=== PATIENT | female | born 1940 | race Caucasian/White ===

== ENCOUNTER 2016-05-11 08:40 | Day surgery (SDC) | payer MEDICARE, BC ==
[2016-05-10 12:55] VITALS: BMI 25.5
[~2016-05-11] VITALS: Ht 162.6 cm; Wt 68.8 kg
[2016-05-11] VITALS (18 sets, daily range): BP systolic 110–125; BP diastolic 62–77; PULSE 77–91; RESP 10–24; Ht 162.6 cm; Wt 68.8 kg
[~2016-05-11 08:40] MED LIST: ADV25050 INHALATION; ASCO500S2 PO; CHOL400T10 PO; CITA-104 PO; COLC0.6T6 PO; CYAN500T46 PO; GUAI120011 PO; LEVO125T79 PO; TIOT18CA INHALATION
[2016-05-11] MEDS ORDERED: COLC0.6T6 PO (09:15)
[2016-05-11] MEDS ORDERED: CEFAZOLIN 2 GM/50 ML (PMX) 50 ML IVPB ONE (09:30)
[2016-05-11] MEDS ORDERED: LACTATED RINGER'S 1,000 ML IV ONE (10:00)
[2016-05-11] MEDS ORDERED: LIDOCAINE 1% (STERILE-PAK) 30 ML INJ ONE (10:12)
[2016-05-11] MEDS ORDERED: BUPIVACAINE 0.5% (SDV) 30 ML INJ ONE (10:12)
[2016-05-11] MEDS ORDERED: ROPIVACAINE 0.5 % 30 ML VIAL ONE (10:52)
--- NOTE | 2016-05-11 11:09 | HPN ---
Date/Time of Note Date/Time of Note DATE: 05/11/16 TIME: 11:07 Interval H&P Admission Note Pt. seen H&P reviewed: No system changes failure of volar plate and screws. Plan for dorsal plate and screw fixation, possible removal of hardware. Possible allograft. ANASTASIIA COBOS May 11, 2016 11:08
[2016-05-11] MEDS ORDERED: FENTAnyl 50 MCG/ML VIAL ONE (11:48)
[2016-05-11] MEDS ORDERED: MIDAZOLAM 1 MG/ML 2 ML INJ ONE (11:48)
[2016-05-11] MEDS ORDERED: CEFAZOLIN 1 GM INJ ONE ×2 (11:48→13:41)
[2016-05-11] MEDS ORDERED: LABETALOL HCL 20MG INJ ONE (12:23)
[2016-05-11] MEDS ORDERED: PROPOFOL 20 ML ONE (13:01)
[2016-05-11] MEDS ORDERED: ONDANSETRON 4 MG INJ ONE (13:43)
[2016-05-11] MEDS ORDERED: METOCLOPRAMIDE 10 MG INJ ONE (13:43)
[2016-05-11] MEDS ORDERED: FENTAnyl 50 MCG/ML VIAL IV PRN ×2 (14:30)
[2016-05-11] MEDS ORDERED: LABETALOL HCL 20MG INJ IV PRN (14:30)
[2016-05-11] MEDS ORDERED: METOCLOPRAMIDE 10 MG INJ IV PRN (14:30)
[2016-05-11] MEDS ORDERED: morphine (1 MG/ML) 10ML SYRINGE IV PRN ×2 (14:30)
[2016-05-11] MEDS ORDERED: DIPHENHYDRAMINE 50 MG INJ IV PRN (14:30)
[2016-05-11] MEDS ORDERED: hydrALAzine 20 MG INJ IV PRN (14:30)
[2016-05-11] MEDS ORDERED: HYDROmorphONE (0.2 MG/ML) 10ML SYG IV PRN ×2 (14:30)
[2016-05-11] MEDS ORDERED: ONDANSETRON 4 MG INJ IV PRN (14:30)
[2016-05-11] MEDS ORDERED: MIDAZOLAM 1 MG/ML 2 ML INJ IV PRN (14:30)
[2016-05-11] MEDS ORDERED: EPHEDrine SULFATE 50 MG/5 ML SYG IV PRN (14:30)
[2016-05-11] MEDS ORDERED: MEPERIDINE 25 MG INJ IV PRN (14:30)
[2016-05-11] MEDS ORDERED: HYDROCODONE/APAP (5/325) TAB PO PRN (15:00)
--- NOTE | 2016-05-11 15:09 | RADRPT ---
PROCEDURE: Intraoperative imaging of the left wrist with fluoroscopy. CLINICAL INDICATION: Left wrist pain. Intraoperative. TECHNIQUE: 17 images of the left wrist were obtained in the operating room with an image intensifi er. No radiologist was in attendance. 30 seconds of fluoroscopy time was used. COMPARISON: 04/14/2016. FINDINGS: Images demonstrate open reduction and internal fixation of the left distal radius with multiple plat es and multiple screws. IMPRESSION: 1. Intraoperative imaging of the left wrist. RPTAT: QQ .Clay Jalloh MD, MD Date Time Electronically viewed and signed by .Clay Jalloh MD, on 05/11/2016 15:09 .R/
--- NOTE | 2016-05-11 17:17 | OPR ---
DATE OF OPERATION: 05/11/2016 PREOPERATIVE DIAGNOSIS: Left distal radius fracture with failed fixation. POSTOPERATIVE DIAGNOSIS: Left distal radius fracture with failed fixation. OPERATION PERFORMED: 1. Revision open reduction internal fixation of left intra-articular distal radius fracture. 2. Application of bone allograft into fracture site. 3. Removal of deep hardware from left distal radius. SURGEON: Anastasiia Gillette MD ANESTHESIA: Peripheral nerve block plus general. OPERATIVE FINDINGS: Dorsal translation and dorsal tilt of distal radius fracture with the fracture site showing no callus formation and fibrous tissue within the fracture site as well as dorsally. A bsolutely no evidence of bony healing. Bone void within the metadiaphyseal junction INDICATIONS FOR PROCEDURE: This is a 75-year-old female who I saw in clinic 3 weeks after attempted conservative management of her left distal radius fracture. Her fracture had displaced despite jules ng in excellent position on the initial reduction of the 1 week followup. Due to her dorsal tilt an d translation and loss of reduction, we elected to proceed with operative intervention understanding the risks and benefits. On her initial procedure, a volar plate and screws were used to secure the fracture fragments. There was excellent fixation and the fracture was stable. However, on the 3 w robinson followup, the patient had loss reduction despite initial stable fixation. The distal fragment h ad tilted dorsally as well as translated dorsally. Options were discussed with the patient, and she elected to proceed with revision open reduction internal fixation understanding the risks and benef its. We discussed the possible necessity of bone allograft due to her bone quality and slow healing . DESCRIPTION OF PROCEDURE: The patient was seen in the preoperative area and all further questions w ere answered. Again, she gave informed consent, understanding the risks and benefits. She was take n to the operative suite and placed in the supine position. A peripheral nerve block was performed at my request for perioperative anesthesia as well as postoperative pain relief. A tourniquet was placed on the left upper extremity and left upper extremity was prepped and draped in the usual ster ile fashion using ChloraPrep stick. Ancef 2 grams was administered and an Esmarch bandage was used to exsanguinate the extremity and the tourniquet inflated to 250 mmHg. The previous volar incision was utilized and sharp dissection was carried down through skin and subc utaneous tissue. The FCR tendon was identified and this was incised along its radial border, altho ugh there was significant scar tissue and scissor dissection was used to carefully identify the FCR tendon. The tendon was retracted ulnarly and the FCR subsheath was identified and was incised along its midline. The FPL was retracted and pronator quadratus was identified and had partially regrown over the plate. Bovie electrocautery was used to elevate radially and distally in order to reveal the plate. The distal row screws were removed and the shaft screws were loosened slightly. Attention was then turned dorsally and a dorsal longitudinal incision was utilized. Sharp dissectio n was carried down through skin and subcutaneous tissue. The extensor retinaculum overlying the EPL tendon was identified. It was incised along the course of the EPL tendon. The EPL tendon was retr acted radially and the interval between the second and fourth compartments was identified, and the f ourth extensor compartment was elevated within its sheath off the distal radius. The second extenso r compartment was also elevated off the distal radius. I identified the fracture site, which had si gnificant fibrous tissue within it and absolutely no evidence of bony growth. The fragment was unst able and was translated dorsally. Knife and rongeur were used to clean out the fracture site from t he fibrous tissue and the fracture was reduced. A [employer] dorsal distal radius plate was utilized and cortical screws were placed in the shaft and locking screws placed distally. Attention was then turned back volarly and the volar distal radius plate was tightened down onto the volar distal radius in order to sandwich the fracture and provide extra stability. Two locking scr ews were placed into the distal aspect of the volar locking plate. X-ray imaging confirmed near yaya tomic alignment and interval fracture reduction and acceptable hardware positioning. As I was pleas ed with the fracture reduction and initial stability, I placed 4 distal row locking screws in the vo lar distal radius plate and tightened down the 3 more proximal shaft screws. I then turned my attention dorsally and placed an additional dorsal distal radius plate for addition al fixation. Despite the fracture reduction, there was bone loss which was quite evident and cancel lous autograft bone was used within the metadiaphyseal void. X-ray imaging confirmed acceptable bon y alignment and hardware placement, and I ranged the wrist, which was quite stable. The wound was copiously irrigated and extensor retinaculum closed with 3-0 Vicryl. Skin was closed with interrupted 4-0 nylon. Xeroform was placed followed by sterile gauze, Webril and a short arm s plint. Tourniquet was deflated after 2 hours and patient was awakened from anesthesia. She was laron en to the postoperative suite in stable condition and tolerated the procedure well without complicat ion. SPECIMENS: Screws from volar distal radius plate, [employer]. ESTIMATED BLOOD LOSS: 5 mL. COUNTS: Sponge, instrument, needle counts correct. TOURNIQUET TIME: 2 hours. FLUOROSCOPIC IMAGES: 18. CONDITION ON DISCHARGE: Stable. Dictated By: ANASTASIIA COLON/MICKY Conf#: [id number] DID#: [id number]
--- NOTE | 2016-05-12 22:54 | RADRPT ---
Vent Rate: 81 bpm RR Interval: 0 msec DE Interval: 174 msec QRS Duration: 72 msec QT Interval: 412 msec QTC Interval: 478 msec P-R-T [place]: 58 - 74 - 88 degrees Normal sinus rhythm with sinus arrhythmia Possible Left atrial enlargement Borderline ECG Electronically Signed By: Andi Stratton [id number]
== END 2016-05-11 17:19 | disposition home or self-care (01) ==
LOC: SDS 08:40
PROVIDERS: ATTEND Orthopaedic Surgery Hand Surgery
DX: S52.572S Other intraarticular fracture of lower end of left radius, sequela (principal); X58.XXXS Exposure to other specified factors, sequela; E03.9 Hypothyroidism, unspecified; J44.9 Chronic obstructive pulmonary disease, unspecified
CPT/HCPCS: 25608; 73090; 88300; 93005; J0690; J1170; J2250; J2405; J2765; J2795; J3010

== ENCOUNTER 2017-03-23 12:59 | Emergency (ER) | payer MEDICARE, BC ==
[~2017-03-23] VITALS: Wt 69.6 kg
[~2017-03-23 12:59] MED LIST changes: -ASCO500S2 PO; -CHOL400T10 PO; +LEVO125T PO; -LEVO125T79 PO; +METO25TA4 PO
--- NOTE | 2017-03-23 14:39 | ERD ---
ER Documentation Chief Complaint Chief Complaint epistaxis/rt eye bruising/abraision to rt shoulder s/p fell onto concrete HPI 76-year-old female, previously healthy, presents to the emergency department complaining of facial pain after a mechanical ground-level fall landing on her face. The event occurred approximately 3 hours prior to arrival. No loss of consciousness. The patient denies blurred vision, nausea, vomiting. She presented with mild epistaxis in the right nostril. ROS All systems reviewed and are negative except as per history of present illness. Medications Home Meds Active Scripts Acetaminophen* (Tylenol*) 325 Mg Tablet, 1 TAB PO Q6 Y for PAIN AND OR ELEVATED TEMP, #20 TAB Prov:JOSE LEVY MD 03/23/17 Metoprolol Tartrate* (Lopressor*) 25 Mg Tablet, 12.5 MG PO BID for 30 Days, #60 TAB Prov:AUSTIN NEELY NP 10/16/16 Reported Medications Colchicine* (Colcrys*) 0.6 Mg Tablet, 0.6 MG PO BID, TAB 05/11/16 Guaifenesin (Mucinex) 1,200 Mg Tab.er.12h, 600 MG PO BID, TAB 04/14/16 Cyanocobalamin* (Vitamin B12*) 500 Mcg Tab, 1000 MCG PO DAILY, TAB 03/17/16 Tiotropium [place]* (Spiriva*) 18 Mcg Cap.w.dev, 1 CAP INHALATION DAILY, #30 CAP 03/17/16 Salmeterol Xinaf/Fluticasone* (Advair*) 250-50 Diskus Inhaler, 1 INH INHALATION BID, #1 INHALER 03/17/16 Citalopram Hydrobromide* (Citalopram Hydrobromide*) 40 Mg Tablet, 40 MG PO DAILY , #30 TAB 03/17/16 Levothyroxine Sodium* (Synthroid*) 125 Mcg Tablet, 125 MCG PO BEFORE BREAKFAST, #30 TAB 03/17/16 Allergies Allergies: Coded Allergies: No Known Allergy (Unverified , 05/11/16) PMhx/Soc History of Surgery: Yes (Appendix, gall bladder,left wrist surgery 2016) Anesthesia Reaction: No Hx Neurological Disorder: No Hx Respiratory Disorders: Yes (COPD) Hx Cardiac Disorders: No Hx Psychiatric Problems: No Hx Miscellaneous Medical Probl: Yes (HYPOTHYROID) Hx Alcohol Use: No Hx Substance Use: No Hx Tobacco Use: No Smoking Status: Never smoker Physical Exam Vitals Vital Signs Date Time Temp Pulse Resp B/P Pulse Ox O2 Delivery O2 Flow Rate FiO2 03/23/17 13:04 98.2 94 20 153/73 96 Physical Exam Patient is in mild acute distress due to pain, vital signs stable. Alert and fully oriented. HEAD: Right side facial abrasion, with right periorbital ecchymosis, mild crepitus to palpation. EYES: PERRLA, EOMI, Sclera and conjunctiva appear normal. EARS: Canals clear, tympanic membranes WNL THROAT: Normal oropharynx. NECK: Supple, No lymphadenopathy. Full ROM without pain or tenderness. HEART: RRR, no rubs, murmurs, clicks or gallops. LUNGS: Clear to auscultation. ABDOMEN: Soft, non-tender without masses or hepatosplenomegaly. EXTREMITIES: No edema bilaterally. BACK: Full ROM, no deformity, normal back exam NEURO: Cranial nerves grossly intact, no motor or sensory deficit Results 24 hrs [place] [address] Radiology Main Line: [phone] DIAGNOSTIC IMAGING REPORT Patient: MADHURI CELESTIN : 1940 Age: 76 Sex: F [id number] DOS: 03/23/17 1344 Ordering MD: JOSE LEVY MD Location: [facility]TE Room/Bed: PROCEDURE: CT Head without. CLINICAL INDICATION: Trauma status post fall. TECHNIQUE: The study was performed utilizing a multi-slice, multidetector CT scanner. Direct spiral 1 mm axial sections were obtained through the head without the use of intravenous contrast material. 1 or more of the following dose reduction techniques were utilized: Automated exposure control, adjustment of the mA and/or kV according to patient's size, iterative reconstruction technique. Coronal and sagittal reformations were obtained. The images were reviewed on a PACS workstation. DICOM images are available. RADIATION DOSE: CTDIvol: 44.3 mGy DLP: 630.2 mGy-cm COMPARISON: No prior studies are available for comparison. FINDINGS: There is no intracranial hemorrhage, extra-axial fluid collection, mass lesion, midline shift or hydrocephalus. There is mild prominence of the cerebral sulci , lateral and third ventricles. There is mild periventricular and subcortical white matter hypodensity. There is mild arteriosclerotic calcification of the parasellar internal carotid arteries. The lee-white matter differentiation is preserved. The basal cisterns are patent. The midline structures are intact. There is mild soft tissue swelling in the right periorbital/supraorbital region without evidence of underlying calvarial fracture. The orbits are normal in appearance. The visualized paranasal sinuses, mastoid air cells and middle ear cavities are normally aerated. IMPRESSION: 1. No acute intracranial abnormality. No intracranial hemorrhage, extra-axial fluid collection, mass lesion or hydrocephalous. 2. Mild peripheral and central cerebral volume loss. 3. Mild periventricular and subcortical white matter hypodensity, likely related to chronic microangiopathic changes. 4. Soft tissue swelling in the right periorbital/supraorbital region without evidence of underlying calvarial fracture. RPTAT: DD .Clint Childers MD, MD Date Time Electronically viewed and signed by .Clint Childers MD, MD on 03/23/2017 14: 45 .S/ CC: JOSE LEVY MD [facility] 76y/o female patient previously healthy, presents to the ED c/o facial pain after a mechanical fall without loss of consciousness. Vital signs stable, Physical exam showed superficial abrasions on the right side of the face, with right periorbital ecchymosis. Differential diagnosis include but not limited to : Fractures, contusion, concussion. Pertinent Data: CT head: IMPRESSION: 1. No acute intracranial abnormality. No intracranial hemorrhage, extra-axial fluid collection, mass lesion or hydrocephalous. 2. Mild peripheral and central cerebral volume loss. 3. Mild periventricular and subcortical white matter hypodensity, likely related to chronic microangiopathic changes. 4. Soft tissue swelling in the right periorbital/supraorbital region without evidence of underlying calvarial fracture. Physical examination and clinical presentation consistent most likely with facial contusion. During the ED course the patient remained stable and asymptomatic. Results and clinical impression discussed with the patient who agrees with management. The patient is stable to be treated outpatient and will be discharged home with a Rx for acetaminophen and ibuprofen Side effects of prescribed medications (headache, rash, nausea, vomiting, diarrhea) were reviewed. Side effects of prescribed NSAID medication (GI distress, edema, bleeding, HTN) were reviewed. The patient was instructed to follow up with the primary care provider in the next 48h. If symptoms persist, worsen or new symptoms develop, then patient should return to the ED immediately. Instructions explained and given to patient in Latvian with acknowledgment and demonstrated understanding. Disclaimer: Inadvertent spelling and grammatical errors are likely due to EHR/ dictation software use and do not reflect on the overall quality of patient care. Also, please note that the electronic time recorded on this note does not necessarily reflect the actual time of the patient encounter. Departure Diagnosis: Primary Impression: Facial contusion Additional Impressions: Fall with no significant injury Fall from slip, trip, or stumble Condition: Stable Additional Instructions: Call your primary care doctor TOMORROW for an appointment during the next 1-2 days. See the doctor sooner or return here if your condition worsens before your appointment time. Thank you very much for allowing us to participate in your care. Your health and safety is our top priority at [facility]. Have prescriptions filled and follow precisely the directions on the label. Follow-up with primary care provider during the next 4 days and bring all the information and medications prescribed. If illness has not improved in 2 days, then make an appointment with primary care provider. If the provider is unavailable, return to the Emergency Department immediately. JOSE LEVY MD Mar 23, 2017 14:39
--- NOTE | 2017-03-23 14:46 | RADRPT ---
PROCEDURE: CT Head without. CLINICAL INDICATION: Trauma status post fall. TECHNIQUE: The study was performed utilizing a multi-slice, multidetector CT scanner. Direct spira l 1 mm axial sections were obtained through the head without the use of intravenous contrast materia l. 1 or more of the following dose reduction techniques were utilized: Automated exposure control, adjustment of the mA and/or kV according to patient's size, iterative reconstruction technique. Co justina and sagittal reformations were obtained. The images were reviewed on a PACS workstation. DICOM images are available. RADIATION DOSE: CTDIvol: 44.3 mGyDLP: 630.2 mGy-cm COMPARISON: No prior studies are available for comparison. FINDINGS: There is no intracranial hemorrhage, extra-axial fluid collection, mass lesion, midline shift or hyd rocephalus. There is mild prominence of the cerebral sulci, lateral and third ventricles. There is mild periventricular and subcortical white matter hypodensity. There is mild arteriosclerotic calc ification of the parasellar internal carotid arteries. The lee-white matter differentiation is pre served. The basal cisterns are patent. The midline structures are intact. There is mild soft tiss ue swelling in the right periorbital/supraorbital region without evidence of underlying calvarial fr acture. The orbits are normal in appearance. The visualized paranasal sinuses, mastoid air cells and middle ear cavities are normally aerated. IMPRESSION: 1. No acute intracranial abnormality. No intracranial hemorrhage, extra-axial fluid collection, ma ss lesion or hydrocephalous. 2. Mild peripheral and central cerebral volume loss. 3. Mild periventricular and subcortical white matter hypodensity, likely related to chronic microan giopathic changes. 4. Soft tissue swelling in the right periorbital/supraorbital region without evidence of underlying calvarial fracture. RPTAT: DD .Clint Childers MD, Date Time Electronically viewed and signed by .Clint Childers MD, MD on 03/23/2017 14:45 .S/
[2017-03-23] MEDS ORDERED: ACET325T33 PO (15:03)
[2017-03-23 15:18] VITALS: BP 128/66; PULSE 71; RESP 18
== END 2017-03-23 15:24 | disposition home or self-care (01) ==
LOC: FTE 12:59
DX: S00.83XA Contusion of other part of head, initial encounter (principal); J44.9 Chronic obstructive pulmonary disease, unspecified; E03.9 Hypothyroidism, unspecified; W01.0XXA Fall on same level from slipping, tripping and stumbling without subsequent striking against object, initial encounter; Y92.9 Unspecified place or not applicable
CPT/HCPCS: 70450

== ENCOUNTER 2017-04-13 17:02 | Emergency (ER) | payer MEDICARE, BC ==
[~2017-04-13] VITALS: Wt 76.4 kg
[~2017-04-13 17:02] MED LIST changes: +ACET325T33 PO
[2017-04-13 21:49] LABS: BASOPHILS % 0.1 % (0.0-2.0); HEMATOCRIT 45.3 % (37.0-47.0); HEMOGLOBIN 14.5 g/dl (12.0-16.0); LYMPHOCYTES # 1.2 10^3/ul (0.8-2.9); LYMPHOCYTES % 7.5 % (15.0-51.0); MEAN CORPUSCULAR HEMOGLOBIN 28.1 pg (29.0-33.0); MEAN CORPUSCULAR VOLUME 87.8 fl (82.0-101.0); MEAN PLATELET VOLUME 9.7 fl (7.4-10.4); MONOCYTE # 0.2 10^3/ul (0.3-0.9); MONOCYTES % 1.5 % (0.0-11.0); NEUTROPHIL # 14.4 10^3/ul (1.6-7.5); NEUTROPHILS % 90.5 % (39.0-77.0); PLATELET COUNT 243 10^3/UL (140-415); RED BLOOD COUNT 5.16 10^6/ul (4.20-5.40); WHITE BLOOD COUNT 15.9 10^3/ul (4.8-10.8)
[2017-04-13 22:03] LABS: INR 0.95; PROTIME 12.8 Sec (11.9-14.9)
[2017-04-13 22:07] LABS: ANION GAP 13 (8-16); BLOOD UREA NITROGEN 20 mg/dl (7-20); CALCIUM 9.4 mg/dl (8.4-10.2); CARBON DIOXIDE 28 mmol/L (21-31); CHLORIDE 103 mmol/L (97-110); CREATININE 0.69 mg/dl (0.44-1.00); GLUCOSE 156 mg/dl (70-220); POTASSIUM 4.4 mmol/L (3.5-5.1); SODIUM 140 mmol/L (135-144)
[2017-04-13 22:22] LABS: TROPONIN-I < 0.012 ng/ml (0.00-0.12)
--- NOTE | 2017-04-13 22:39 | RADRPT ---
PROCEDURE: XR Chest. CLINICAL INDICATION: Abdominal pain. TECHNIQUE: Single frontal view of the chest was obtained COMPARISON: Chest radiograph dated June 21, 2008. FINDINGS: The heart and mediastinum are within normal limits. Aortic calcifications are present. There are chronic interstitial lung changes. No focal consolidation, pleural effusions, or pneumotho rax is seen. The osseous structures are grossly unremarkable. IMPRESSION: 1. No acute cardiopulmonary disease. RPTAT:AAJJ Physician Natividad Date Time Electronically viewed and signed by Physician Natividad on 04/13/2017 22:39 QL/
--- NOTE | 2017-04-13 22:55 | RADRPT ---
PROCEDURE: CT BRAIN WITHOUT CONTRAST CLINICAL INDICATION: 76-year-old female with trauma. TECHNIQUE: The study was performed utilizing Positron VCT 64-slice CT scanner. Direct axial sections were obtained from the foramen magnum to the vertex without the use of intravenous contrast material. Sagittal and coronal reformations were obtained. One or more the following dose reduction techniques were utilized: automated exposure control, adjustment of the mA and/or kV according to p atient's size and/or use of iterative reconstruction technique. DICOM images are available. The imag es were viewed on a PACS workstation. CTD/vol = 40.3 mGy; Total Exam DLP = 720.2 mGy-cm. COMPARISON: CT BRAIN 03/23/2017 FINDINGS: There is klss-jw-julbaodh degree of diffuse cortical and central atrophy with compensatory ventricul ar enlargement. There is no evidence for mass effect or midline shift. There are periventricular a reas of decreased density consistent with microangiopathic ischemic changes. There is no evidence f or acute intra or extra-axial blood. Calcifications are seen within the intracranial carotid arterie s bilaterally. The bony calvarium is intact. There is an old right orbital floor fracture. There is mild dependent mucosal thickening within the right sphenoid sinus. The mastoid air cells are without significant soft tissue. IMPRESSION: 1. Qcbp-zo-kutnzbvz diffuse atrophy. 2. Microangiopathic ischemic changes. 3. Vascular calcifications. 4. Old right orbital floor fracture. 5. Mild dependent mucosal thickening right sphenoid sinus. .Michael Valladares MD, MD Date Time Electronically viewed and signed by .Michael Valladares MD, on 04/13/2017 22:55 .M/
--- NOTE | 2017-04-13 23:16 | RADRPT ---
PROCEDURE: CT CERVICAL SPINE WITHOUT CONTRAST CLINICAL INDICATION: 76-year-old female with history of trauma 3 weeks ago. TECHNIQUE: The study was performed utilizing a GE Synthorx VCT 64-slice CT scanner. Direct axia l sections were obtained through the cervical spine. Coronal and sagittal re-formations were obtain ed. One or more of the following dose reduction techniques were utilized: automated exposure control , adjustment of the mA and/or kV according to patient's size and/or the use of iterative reconstruct ion technique. DICOM images are available. The images were viewed on a PACS workstation. CTD/vol = 2 2.3 mGy; Total Exam DLP = 610.9 mGy-cm. COMPARISON: None. FINDINGS: There is a subtle nondisplaced oblique fracture extending from the ventral aspect of the odontoid to wards the base visualized on axial image [id number] and sagittal image [id number]. Note that this may represen t a prior fracture with incomplete union. Degenerative changes are seen within the atlantoaxial junc tion. At C2-3 there is minimal anterolisthesis with mild bilateral uncovertebral and moderate facet arthro hoang without significant foraminal stenosis. At C3-4 there is anterolisthesis of approximately 35% with moderate disc space narrowing, mild bilat eral uncovertebral and marked right with moderate left facet arthropathy. There is moderate right fo raminal stenosis. At C4-5 there is marked disc space narrowing. There is endplate sclerosis. There is posterior disk-o steophyte complex projecting 3 mm beyond the posterior margin. There are bilateral uncovertebral and moderate left-sided facet arthropathy resulting in mild right and uikdrnfl-gw-vkzhmm left foraminal stenosis. At C5-6 there is marked disc space narrowing. There is posterior disk-osteophyte complex projecting 2 mm beyond the posterior margin. There are bilateral uncovertebral and facet degenerative changes r esulting in iuhw-vu-qddzsfwa bilateral foraminal stenosis. At C6-7 there is marked disc space narrowing. There is endplate sclerosis. There is posterior disk-o steophyte complex projecting 3 mm beyond the posterior margin. There are bilateral uncovertebral and facet degenerative changes resulting in mild right and moderate left foraminal stenosis. At C7-T1 there is mild anterolisthesis of approximately 10%. There is mild bilateral facet arthropat hy. There is no significant foraminal stenosis. Centrilobular emphysematous changes are seen within the lung apices with mild right apical scarring. IMPRESSION: 1. Subtle nondisplaced oblique fracture through the odontoid extending to the base. This may repres ent a prior fracture with incomplete union. Clinical correlation is necessary. 2. Cervical spondylosis. 3. Centrilobular emphysematous changes with apical scarring. CRITICAL RESULTS: A call report was made to [facility] ER Dr. Morataya on April 13, 2017 at 11:08 p.m . .Michael Valladares MD, MD Date Time Electronically viewed and signed by .Michael Valladares MD, MD on 04/13/2017 23:16 .M/
[2017-04-13] MEDS ORDERED: ALEN70TA30 PO (23:38)
[2017-04-13] MEDS ORDERED: CYAN100080 PO (23:39)
[2017-04-13] MEDS ORDERED: CHOL100062 PO (23:39)
[2017-04-13] MEDS ORDERED: TURM500C7 PO (23:40)
--- NOTE | 2017-04-13 23:40 | ERD ---
ER Documentation Chief Complaint Chief Complaint neck pain, after a fall in [place], on o2 at home HPI Patient is a 76-year-old female with no medical problems who presents with a fall. She had a fall on the day before [place] and was seen in the ER and had a CT scan of her brain at that time. She felt whiplash that day. She was discharged home and she has been gardening and doing her usual activities of daily living without difficulty other than mild neck discomfort. The patient is CT scan done yesterday which showed a cervical spine fracture. She was told to come to the ER for further evaluation. She has an appointment with her primary doctor Dr. Marsh tomorrow. Upon review of old medical records the patient has multiple visits to the ER for various complaints. ROS All systems reviewed and are negative except as per history of present illness. Medications Home Meds Reported Medications Turmeric/Turmeric Root Extract (Turmeric 450-50 mg Capsule) 1 Each Capsule, 1 EACH PO DAILY, CAP 04/13/17 Cyanocobalamin* (Vitamin B-12*) 1,000 Mcg Tablet.sa, 1000 MCG PO DAILY, TAB 04/13/17 Cholecalciferol* (Vitamin D3*) 1,000 Unit Tablet, 1000 UNIT PO DAILY, TAB 04/13/17 Alendronate Sodium* (Fosamax*) 70 Mg Tablet, 70 MG PO Q7D, #4 TAB 04/13/17 Colchicine* (Colcrys*) 0.6 Mg Tablet, 0.6 MG PO DAILY, TAB 05/11/16 Tiotropium [place]* (Spiriva*) 18 Mcg Cap.w.dev, 1 CAP INHALATION DAILY, #30 CAP 03/17/16 Salmeterol Xinaf/Fluticasone* (Advair*) 250-50 Diskus Inhaler, 1 INH INHALATION BID, #1 INHALER 03/17/16 Citalopram Hydrobromide* (Citalopram Hydrobromide*) 40 Mg Tablet, 40 MG PO DAILY , #30 TAB 03/17/16 Levothyroxine Sodium* (Synthroid*) 125 Mcg Tablet, 125 MCG PO BEFORE BREAKFAST, #30 TAB 03/17/16 Discontinued Reported Medications Guaifenesin (Mucinex) 1,200 Mg Tab.er.12h, 600 MG PO BID, TAB 04/14/16 Cyanocobalamin* (Vitamin B12*) 500 Mcg Tab, 1000 MCG PO DAILY, TAB 03/17/16 Discontinued Scripts Acetaminophen* (Tylenol*) 325 Mg Tablet, 1 TAB PO Q6 Y for PAIN AND OR ELEVATED TEMP, #20 TAB Prov:JOSE LEVY MD 03/23/17 Metoprolol Tartrate* (Lopressor*) 25 Mg Tablet, 12.5 MG PO BID for 30 Days, #60 TAB Prov:AUSTIN NEELY NP 10/16/16 Allergies Allergies: Coded Allergies: No Known Allergy (Unverified , 04/13/17) PMhx/Soc History of Surgery: Yes (Appendix, gall bladder,left wrist surgery 2016) Anesthesia Reaction: No Hx Neurological Disorder: No Hx Respiratory Disorders: Yes (COPD) Hx Cardiac Disorders: No Hx Psychiatric Problems: No Hx Miscellaneous Medical Probl: Yes (HYPOTHYROID) Hx Alcohol Use: No Hx Substance Use: No Hx Tobacco Use: No Smoking Status: Never smoker FmHx Family History: No diabetes Physical Exam Vitals Vital Signs Date Time Temp Pulse Resp B/P Pulse Ox O2 Delivery O2 Flow Rate FiO2 04/13/17 17:07 98.2 71 18 153/71 99 Physical Exam Const: No acute distress Head: Atraumatic Eyes: Normal Conjunctiva ENT: Normal External Ears, Nose and Mouth. Neck: Patient is currently in a c-collar that was placed in the ER Resp: Clear to auscultation bilaterally Cardio: Regular rate and rhythm, no murmurs Abd: Soft, non tender, non distended. Normal bowel sounds Skin: No petechiae or rashes Back: No midline or flank tenderness Ext: No cyanosis, or edema Neur: Awake and alert, 5 out of 5 strength in the upper and lower extremities bilaterally Psych: Normal Mood and Affect Result Diagram: 04/13/17213804/13/172138 Results 24 hrs Laboratory Tests Test 04/13/17 21:39 White Blood Count 15.910^3/ul Red Blood Count 5.1610^6/ul Hemoglobin 14.5g/dl Hematocrit 45.3% Mean Corpuscular Volume 87.8fl Mean Corpuscular Hemoglobin 28.1pg Mean Corpuscular Hemoglobin Concent 32.0g/dl Red Cell Distribution Width 18.0% Platelet Count 13654^3/UL Mean Platelet Volume 9.7fl Neutrophils % 90.5% Lymphocytes % 7.5% Monocytes % 1.5% Eosinophils % 0.0% Basophils % 0.1% Nucleated Red Blood Cells % 0.0/100WBC Neutrophils # 14.410^3/ul Lymphocytes # 1.210^3/ul Monocytes # 0.210^3/ul Eosinophils # 0.010^3/ul Basophils # 0.010^3/ul Nucleated Red Blood Cells # 0.010^3/ul Prothrombin Time 12.8Sec Prothrombin Time Ratio 1.0 INR International Normalized Ratio 0.95 Activated Partial Thromboplast Time 25.0Sec Sodium Level 140mmol/L Potassium Level 4.4mmol/L Chloride Level 103mmol/L Carbon Dioxide Level 28mmol/L Anion Gap 13 Blood Urea Nitrogen 20mg/dl Creatinine 0.69mg/dl Glucose Level 156mg/dl Calcium Level 9.4mg/dl Troponin I < 0.012ng/ml Procedures/MDM CT brain shows no intracranial hemorrhage per radiology. CT cervical spine shows a oblique fracture through the odontoid process per radiology. Patient is a 76-year-old female presents with a cervical spine fracture of the odontoid process. She likely sustained this during a hyperflexion injury a few weeks ago. The patient was placed in a collar immediately upon arrival to the ER. I spoke with Dr. June who is her neurosurgeon control center operator. He believes that this patient could be managed as an outpatient with a c-collar in place for the next 6-8 weeks. He is willing to see the patient in his office. The patient may require surgery if this injury has not healed at the end of the 6-8 weeks. She is not having any pain currently does not want any pain medications. She will follow-up with her primary doctor tomorrow. Departure Diagnosis: Primary Impression: Odontoid fracture Encounter type: initial encounter Fracture type: closed Qualified Code: S12.100A - Closed odontoid fracture, initial encounter Condition: Fair Patient Instructions: Nonsurgical Treatment of Cervical Spine Problems Referrals: TOO MARSH MD, SEAN S. MD Additional Instructions: Keep the appointment scheduled for tomorrow with your doctor. MELISSA GONZALEZ MD Apr 13, 2017 23:40
[2017-04-14 00:13] VITALS: BP 135/82; PULSE 89; RESP 18; TEMP 98.2
== END 2017-04-14 00:15 | disposition home or self-care (01) ==
LOC: E/R 17:02
DX: S12.100A Unspecified displaced fracture of second cervical vertebra, initial encounter for closed fracture (principal); J44.1 Chronic obstructive pulmonary disease with (acute) exacerbation; E03.9 Hypothyroidism, unspecified; R51 Headache; W18.39XA Other fall on same level, initial encounter; Y92.9 Unspecified place or not applicable
CPT/HCPCS: 36415; 70450; 71010; 72125; 80048; 84484; 85025; 85610; 85730; 93005